=== PATIENT | female | born 1960 | race Caucasian/White ===

== ENCOUNTER → 2021-03-15 | Outpatient (CLI) | payer BC ==
[2021-02-03 15:00] VITALS: BP 103/72
[~2021-03-15] MED LIST: ALPR0.5T PO; DOCU-153 PO; HYDR-2761 PO
--- NOTE | 2021-03-16 09:57 | KCIC ---
EXAMINATION: Magnetic resonance imaging (MRI) of the cervical spine without contrast 03/15/2021 3:05 PM HISTORY: Neck pain on left side TECHNIQUE: Multiplanar multi-weighted MRI of the cervical spine was performed without intravenous con trast using the standard cervical spine protocol. Contrast information: None administered COMPARISON: None available. FINDINGS: There is straightening of the normal cervical lordosis. There is 2 mm anterolisthesis of C3 on C4. Ve rtebral body heights are maintained. Marrow signal intensity is normal in all sequences with exceptio n of Modic type I endplate degenerative changes at C6-C7. Moderate disc height loss at C6-C7 with end plate irregularity. Moderate anterior marginal osteophytosis at C5-C6 and C6-C7. Cervical spinal cord signal intensity is normal in all sequences. Craniocervical junction is intact. Skull base is intact . Posterior fossa is normal in appearance. Vertebral artery flow voids are maintained. No prevertebra l edema. No paraspinal soft tissue abnormality. C2-C3: The disk is normal in configuration. There is mild left facet arthropathy. There is no uncove rtebral joint disease. There is no neuroforaminal stenosis. There is no spinal canal stenosis. C3-C4: There is mild disc bulge. Mild facet arthropathy, left greater than right. Mild left uncoverte bral joint disease. Mild left neuroforaminal stenosis. No spinal canal stenosis. C4-C5: There is mild disc bulge. Mild facet arthropathy. No uncovertebral joint disease. No neurofora hloland or spinal canal stenosis. C5-C6: There is a posterior discussed by complex asymmetric to the left. Mild to moderate left and mo derate neural foraminal stenosis. There is mild to moderate left and mild right facet arthropathy. Mi ld left uncovertebral joint disease. Mild spinal canal stenosis without deformity of the cord or cord signal alteration. C6-C7: There is a posterior disc osteophyte complex asymmetric to the left. Mild facet arthropathy. M ild uncovertebral joint disease. Moderate right and mild/moderate left neuroforaminal stenosis. Mild spinal canal stenosis, exacerbated by ligamentum flavum infolding. No deformity of the cord or cord s ignal alteration. C7-T1: Disc is normal in configuration. No neuroforaminal or spinal canal stenosis. T1-T2: Disc is normal in configuration. No neuroforaminal or spinal canal stenosis. IMPRESSION: Mild degenerative changes of the cervical spine as described in detail above. Electronically signed by: Alycia Esteban MD (03/16/2021 9:55 AM) [id number]
== END ==
LOC: KCIC MRI 14:51
PROVIDERS: ATTEND Family Medicine
DX: M47.812 Spondylosis without myelopathy or radiculopathy, cervical region (principal); M48.02 Spinal stenosis, cervical region
CPT/HCPCS: 72141

== ENCOUNTER 2021-08-08 11:05 | Emergency (ER) | payer BC ==
[~2021-08-08] VITALS: Ht 157.5 cm; Wt 53.6 kg
[~2021-08-08 11:05] MED LIST changes: +ALBU2.5V5 NEB; +BUPR150T15 PO; +BUSP5TAB PO; +DOCU-148 PO; -DOCU-153 PO; +ESTR0.5T PO; +FLUO40CA9 PO; +GABA300C18 PO; +HYDR-2765 PO; +LAMO150T4 PO; +MULT1TAB92 PO; +OMEP20CA16 PO; +OXYB-36 PO; +TIZA2CAP PO; +TIZA4TAB2 PO
[2021-08-08] MEDS ORDERED: HYDROcodone/APAP 5/325MG 1 TAB TABLET PO ONE (12:15)
--- NOTE | 2021-08-08 12:36 | PHYS DOC ---
Past Medical History Past Medical History: Alcoholism, Anxiety, Depression Additional Past Medical Histor: Chronic neck pain, chronic low back pain, hx of rib fxs Past Surgical History: Appendectomy, Hip Replacement, Hysterectomy, Tonsillectomy, Tubal ligation Additional Past Surgical Histo: Cervical nerve ablation Smoking Status: Current Every Day Smoker Alcohol Use: Rarely Drug Use: Marijuana General Adult EDM: Chief Complaint: ANXIETY/PANIC ATTACK HPI: HPI: Patient is a 61-year-old female presents with report of left hip pain that has been ongoing for some time. Patient has recent left hip replacement. Patient also has increased life stressors and anxiety. Patient is getting ready to attend rehab for alcoholism. Patient also was taken off of her alprazolam by h er PCP due to concern with combination of alcohol. Patient denies suicidal ideation. Review of Systems: Review of Systems: Constitutional: Denies fever or chills Eyes: Denies redness or eye pain HENT: Denies nasal congestion or sore throat Respiratory: Denies cough or shortness of breath Cardiovascular: Denies chest pain or palpitations GI: Denies abdominal pain, nausea, or vomiting : Denies dysuria or hematuria Musculoskeletal: Denies back pain; left hip pain Integument: Denies rash or skin lesions Neurologic: Denies headache, focal weakness or sensory changes Complete systems were reviewed and found to be within normal limits, except as documented in this note. Heart Score: C/O Chest Pain: N/A Current Medications: Current Medications Medications (Trade) Dose Ordered Sig/Giulia Start Time Stop Time Status Last Admin Dose Admin Acetaminophen/ Hydrocodone Bitart (Lortab 5/325) 1 tab 1X ONCE 08/08/21 12:15 08/08/21 12:16 DC 08/08/21 12:27 1 TAB Allergies: Allergies: Allergies Coded Allergies Type Severity Reaction Last Updated Verified No Known Drug Allergies 08/08/21 No Physical Exam: PE: Constitutional: Well developed, well nourished, no acute distress, non-toxic appearance HENT: Normocephalic, atraumatic Eyes: Conjunctiva normal, no discharge Neck: Normal range of motion, no tenderness, supple Lungs & Thorax: No respiratory distress, equal chest rise and fall Abdomen: Soft, no tenderness; pelvis stable and nontender Skin: Warm, dry, no erythema, no rash Back: No tenderness, no CVA tenderness Extremities: Left hip with pain on range of motion, no shortening, distal pulses intact, no edema Neurologic: Alert and oriented X 3, normal motor function, normal sensory function, no focal deficits noted Psychologic: Affect anxious, judgment normal, denies suicidal or homicidal ideation Current Patient Data: Vital Signs: Vital Signs Date Time Temp Pulse Resp B/P (MAP) Pulse Ox O2 Delivery O2 Flow Rate FiO2 08/08/21 12:27 16 100 Room Air 08/08/21 11:30 98.6 83 154/86 (108) 98.6 EKG: EKG: [] Radiology/Procedures: Radiology/Procedures: PROCEDURE: HIP LEFT 2V WITH PELVIS XR BILATERAL HIP (WITH OR WITHOUT PELVIS) LEFT 2 VIEWS History: Left hip and leg pain. Comparison: 07/27/2021 Technique: AP pelvis with cone-down AP and frog-leg lateral views the left hip. Findings: Left hip hemiarthroplasty in good position without evidence of loosening or complication. Degenerative changes of lower lumbar spine. Pubic rami are intact. Soft tissues are unremarkable. Impression: 1. Left hip hemiarthroplasty without evidence of complication. Electronically signed by: Enzo Ayers MD (08/08/2021 12:39 PM) [id number] Course & Med Decision Making: Course & Med Decision Making Pertinent Imaging studies reviewed. (See chart for details) Patient presents with left sided hip pain status post hip arthroplasty. Pain addressed. XR obtained with components in good position and without findings of acute fracture/dislocation. Patient also with increased life stressors and anxiety. PAT consult requested. PAT evaluation performed and deemed patient safe for outpatient follow-up. Patient stable for discharge with outpatient follow-up with PCP/orthopedics /mental health. Orthopedic referral provided. Discussed findings and plan with patient and spouse, who acknowledges understanding and agreement. Latisha Disclaimer: Latisha Disclaimer: This electronic medical record was generated, in whole or in part, using a voice recognition dictation system. Departure Departure Impression: Primary Impression: Hip pain Additional Impressions: History of total left hip arthroplasty Anxiety Disposition: HOME / SELF CARE / HOMELESS Condition: STABLE Referrals: SHANICE AGUILAR (PCP) ANKUSH LEWIS DO Patient Instructions: Anxiety and Panic Attacks, [id number], Hip Pain, Total Hip Replacement, Care After, [id number] Additional Instructions: ICE area of discomfort 20 min on then leave off next 20 mins. Repeat several times as needed for next few days. May also take over the counter Ibuprofen as needed for pain. Scripts Hydrocodone Bit/Acetaminophen (HYDROCODONE-APAP 5-325 ) 1 Tab Tablet 0.5-1 TAB PO PRN Q6HRS PRN for PAIN, #10 TAB 0 Refills Prov: MAHESH MEDRANO DO 08/08/21 MAHESH MEDRANO DO Aug 08, 2021 12:36
[2021-08-08] MEDS ORDERED: HYDR-2761 PO (12:40)
--- NOTE | 2021-08-08 12:41 | RAD ---
XR BILATERAL HIP (WITH OR WITHOUT PELVIS) LEFT 2 VIEWS History: Left hip and leg pain. Comparison: 07/27/2021 Technique: AP pelvis with cone-down AP and frog-leg lateral views the left hip. Findings: Left hip hemiarthroplasty in good position without evidence of loosening or complication. Degenerativ e changes of lower lumbar spine. Pubic rami are intact. Soft tissues are unremarkable. Impression: 1. Left hip hemiarthroplasty without evidence of complication. Electronically signed by: Enzo Ayers MD (08/08/2021 12:39 PM) [id number]
[2021-08-08 13:02] VITALS: BP 137/90
== END 2021-08-08 13:31 | disposition home or self-care (01) ==
LOC: ER 11:05 → MERGE 11:05 → ER 13:31
DX: M25.552 Pain in left hip (principal); Z96.642 Presence of left artificial hip joint; R07.89 Other chest pain; R06.02 Shortness of breath; G89.29 Other chronic pain; F17.200 Nicotine dependence, unspecified, uncomplicated; Z90.89 Acquired absence of other organs; Z90.710 Acquired absence of both cervix and uterus; Z98.51 Tubal ligation status
CPT/HCPCS: 73502; 99283